=== PATIENT | female | born 1955 | race Caucasian/White ===

== ENCOUNTER 2017-07-12 21:26 | Inpatient (IN) | payer OTHER ==
[~2017-07-12] VITALS: Ht 162.6 cm; Wt 94.4 kg
[2017-07-12 23:08] LABS: BASOPHIL % 0.7 % (0-2); PLATELET COUNT 344 x10^3mcL (130-400)
[2017-07-12 23:12] LABS: CALCIUM 8.4 mg/dL (8.5-10.1); CARBON DIOXIDE 28.4 mmol/L (21-32); CHLORIDE SERUM 103 mmol/L (98-107); CREATININE SERUM 0.7 mg/dL (0.6-1.0); GFR1 > 60 mL/min; GLUCOSE SERUM 109 mg/dL (74-106); POTASSIUM SERUM 4.3 mmol/L (3.5-5.1); RED CELL DISTRIBUTION WIDTH 17.7 % (11.5-14.5); SODIUM SERUM 140 mmol/L (136-145)
[2017-07-12 23:15] LABS: ALBUMIN 3.5 g/dL (3.4-5.0); ALKALINE PHOSPHATASE 85 U/L (46-116); ALT/SGPT 46 U/L (14-59); AST/SGOT 74 U/L (15-37); BILIRUBIN TOTAL 0.6 mg/dL (0.20-1.00); TOTAL PROTEIN, SERUM 7.8 g/dL (6.4-8.2)
[2017-07-12 23:16] LABS: AMYLASE 245 U/L (25-115); LIPASE 3204 IU/L (73-393)
[2017-07-13] MEDS ORDERED: TRAMADOL HCL50 MG PO (00:55)
[2017-07-13 03:09] VITALS: BP 133/72
[2017-07-13 05:55] VITALS: BP 119/67
[2017-07-13 07:41] LABS: CALCIUM 8.2 mg/dL (8.5-10.1); CARBON DIOXIDE 28.5 mmol/L (21-32); CHLORIDE SERUM 107 mmol/L (98-107); CREATININE SERUM 0.7 mg/dL (0.6-1.0); GFR1 > 60 mL/min; GLUCOSE SERUM 110 mg/dL (74-106); LIPASE 788 IU/L (73-393); POTASSIUM SERUM 4.5 mmol/L (3.5-5.1); SODIUM SERUM 141 mmol/L (136-145)
[2017-07-13 07:43] LABS: AMYLASE 126 U/L (25-115)
[2017-07-13 07:50] LABS: BASOPHIL % 0.4 % (0-2); PLATELET COUNT 309 x10^3mcL (130-400)
[2017-07-13 07:53] LABS: RED CELL DISTRIBUTION WIDTH 17.3 % (11.5-14.5)
[2017-07-13 10:41] VITALS: BP 116/72
[2017-07-13 11:14] LABS: microscopic required? NO
[2017-07-13 11:20] LABS: urine erythrocyte NEGATIVE (NEGATIVE)
[2017-07-13 11:26] LABS: AMPHETAMINE QUAL UR NONE DETECTED (NEG <=1000)
[2017-07-13 13:47] LABS: T3 TOTAL 1.24 ng/mL
[2017-07-13 13:48] LABS: CHOLESTEROL/HDL RATIO 2.4; MAGNESIUM 2.2 mg/dL (1.8-2.4); PHOSPHOROUS 3.6 mg/dL (2.5-4.9)
[2017-07-13 13:51] VITALS: BP 109/62
[2017-07-13 14:01] LABS: FREE T4 0.98 ng/dL (0.76-1.46); FREE THYROXINE INDEX 2.4 ug/dL (1.4-4.5); T4(THYROXINE) 7.2 ug/dL (4.7-13.3)
[2017-07-13 18:24] VITALS: BP 125/74
[2017-07-13 20:07] VITALS: Ht 162.6 cm; Wt 94.4 kg
[2017-07-13 20:49] VITALS: BP 117/71
[2017-07-14 05:06] VITALS: BP 107/61
[2017-07-14 07:28] LABS: CALCIUM 8.5 mg/dL (8.5-10.1); CARBON DIOXIDE 25.3 mmol/L (21-32); CHLORIDE SERUM 104 mmol/L (98-107); CREATININE SERUM 0.6 mg/dL (0.6-1.0); GFR1 > 60 mL/min; GLUCOSE SERUM 70 mg/dL (74-106); MAGNESIUM 1.9 mg/dL (1.8-2.4); PHOSPHOROUS 2.9 mg/dL (2.5-4.9); POTASSIUM SERUM 3.7 mmol/L (3.5-5.1); SODIUM SERUM 140 mmol/L (136-145)
[2017-07-14 07:30] LABS: BASOPHIL % 0.6 % (0-2); PLATELET COUNT 329 x10^3mcL (130-400)
[2017-07-14 07:31] LABS: RED CELL DISTRIBUTION WIDTH 17.1 % (11.5-14.5)
[2017-07-14 07:53] VITALS: BP 114/67
[2017-07-14 17:18] VITALS: BP 115/70
[2017-07-14 21:40] VITALS: BP 128/63
[2017-07-14 21:41] VITALS: BP 120/84
[2017-07-15 05:08] VITALS: BP 148/84
[2017-07-15 07:09] LABS: BASOPHIL % 0.4 % (0-2); PLATELET COUNT 325 x10^3mcL (130-400)
[2017-07-15 07:11] LABS: RED CELL DISTRIBUTION WIDTH 16.9 % (11.5-14.5)
[2017-07-15 07:29] LABS: ALKALINE PHOSPHATASE 70 U/L (46-116); ALT/SGPT 27 U/L (14-59); AMYLASE 39 U/L (25-115); AST/SGOT 28 U/L (15-37); BILIRUBIN TOTAL 0.3 mg/dL (0.20-1.00); CALCIUM 8.7 mg/dL (8.5-10.1); CARBON DIOXIDE 24.5 mmol/L (21-32); CHLORIDE SERUM 105 mmol/L (98-107); CREATININE SERUM 0.6 mg/dL (0.6-1.0); GFR1 > 60 mL/min; GLUCOSE SERUM 81 mg/dL (74-106); LIPASE 311 IU/L (73-393); PHOSPHOROUS 2.9 mg/dL (2.5-4.9); SODIUM SERUM 140 mmol/L (136-145); TOTAL PROTEIN, SERUM 7.2 g/dL (6.4-8.2)
[2017-07-15 07:31] LABS: ALBUMIN 3.1 g/dL (3.4-5.0)
[2017-07-15 10:55] VITALS: BP 104/55
[2017-07-15 11:50] VITALS: BP 99/52
[2017-07-15 12:30] VITALS: BP 113/56
[2017-07-15 14:00] VITALS: BP 121/83
[2017-07-15 16:43] VITALS: BP 121/83
[2017-07-16 05:59] VITALS: BP 115/60
[2017-07-16 07:44] LABS: BASOPHIL % 0.6 % (0-2); PLATELET COUNT 306 x10^3mcL (130-400)
[2017-07-16 07:48] LABS: RED CELL DISTRIBUTION WIDTH 17.3 % (11.5-14.5)
[2017-07-16 07:56] LABS: MAGNESIUM 1.8 mg/dL (1.8-2.4); PHOSPHOROUS 2.9 mg/dL (2.5-4.9)
[2017-07-16 08:00] VITALS: BP 115/60
[2017-07-16 08:02] LABS: ALKALINE PHOSPHATASE 65 U/L (46-116); ALT/SGPT 34 U/L (14-59); AST/SGOT 41 U/L (15-37); BILIRUBIN TOTAL 0.29 mg/dL (0.20-1.00); CALCIUM 9.1 mg/dL (8.5-10.1); CARBON DIOXIDE 25.5 mmol/L (21-32); CHLORIDE SERUM 104 mmol/L (98-107); CREATININE SERUM 0.9 mg/dL (0.6-1.0); GFR1 > 60 mL/min; GLUCOSE SERUM 103 mg/dL (74-106); POTASSIUM SERUM 4.2 mmol/L (3.5-5.1); SODIUM SERUM 137 mmol/L (136-145); TOTAL PROTEIN, SERUM 7.3 g/dL (6.4-8.2)
[2017-07-16 08:13] LABS: ALBUMIN 3.1 g/dL (3.4-5.0)
[2017-07-16 09:17] VITALS: BP 126/67
[2017-07-16] MEDS ORDERED: ZOFI IV ×2 (09:53)
[2017-07-16 10:08] VITALS: BP 126/67
== END 2017-07-16 15:40 | disposition home or self-care (01) | DRG 418 ==
LOC: ED 21:26 → DU 07-13 01:20 → MU 07-13 03:10
PROVIDERS: Emergency Medicine; Family Medicine; Family Medicine Sports Medicine; Surgery
PROC: BF141ZZ Fluoroscopy of Gallbladder, Bile Ducts and Pancreatic Ducts using Low Osmolar Contrast (ICD-10-PCS; 2017-07-15)
PROC: 0FT44ZZ Resection of Gallbladder, Percutaneous Endoscopic Approach (ICD-10-PCS; principal; 2017-07-15 07:30)
DX: K85.10 Biliary acute pancreatitis without necrosis or infection (principal); E44.1 Mild protein-calorie malnutrition; K86.1 Other chronic pancreatitis; D64.9 Anemia, unspecified; R74.0 Nonspecific elevation of levels of transaminase and lactic acid dehydrogenase [LDH]; E83.41 Hypermagnesemia; K80.20 Calculus of gallbladder without cholecystitis without obstruction; E83.51 Hypocalcemia; Z53.29 Procedure and treatment not carried out because of patient's decision for other reasons; E66.9 Obesity, unspecified; Z88.5 Allergy status to narcotic agent; Z79.899 Other long term (current) drug therapy; Z68.36 Body mass index [BMI] 36.0-36.9, adult
CPT/HCPCS: 74181; 83880; 84439; 94150; C1758; C9113; G0378; J0330; J0696; J0780; J1170; J1644; J1885; J1956; J2175; J2250; J2405; J2704; J2710; J3010; J3490; J7030; J7120; Q0092; Q9967